=== PATIENT | male | born 1965 | race African-American/Black ===

== ENCOUNTER → 2017-11-17 15:00 | Outpatient (REF) | payer MEDICARE, MEDICAID, SELFPAY ==
[2017-11-17 17:38] LABS: Microscopic, Urine URINE MICROSCOPIC (MICROSCOPIC)
[2017-11-17 17:57] LABS: Basophils % 0.6 % (0.1-2.0); Eosinophils # 0.1 K/mm3 (0.0-0.4); Hematocrit 48.3 % (42.0-52.0); Hemoglobin 15.5 g/dL (14.1-18.0); Lymphocytes # 1.3 K/mm3 (0.7-4.5); Lymphocytes % 22.6 K/mm3 (10-50); Mean Corpuscular HGB Conc 32.1 g/dL (31.8-35.4); Mean Corpuscular Volume 90.4 fl (80-94); Mean Platelet Volume 8.7 fl (7.4-10.4); Monocytes # 0.3 K/mm3 (0.1-1.0); Monocytes % 5.6 % (1.7-9.3); Neutrophils % 69.2 % (37.0-80.0); Platelet Count 254 K/mm3 (142-424); Red Blood Count 5.35 M/mm3 (4.60-6.20); Red Cell Distribution Width 12.5 % (11.5-17.5); White Blood Count 5.7 K/mm3 (4.8-10.8)
[2017-11-17 19:11] LABS: Alanine Aminotransferase 33 U/L (12-78); Albumin Level 4.4 gm/dL (3.4-5.0); Alkaline Phosphatase 116 U/L (46-116); Anion Gap 14.6 mEq/L (5-15); Aspartate Amino Transferase 28 U/L (15-37); Bilirubin,Total 1.4 mg/dL (0.2-1.0); Blood Urea Nitrogen 19 mg/dL (7-18); Calcium 9.2 mg/dL (8.5-10.1); Carbon Dioxide 30 mmol/L (21.0-32.0); Chloride 102 mmol/L (98-107); Chol/HDL Ratio 3.1 (1-3.5); Cholesterol 195 mg/dL (140-200); Estimated Glomerular Filt Rate 32 ml/min (>60); GFR (African American) 38 ML/MIN (>60); Globulin 4.2 gm/dl (1.3-3.2); Glucose 103 mg/dL (74-106); HDL Cholesterol 62 mg/dL (27-67); LDL Cholesterol 122 mg/dL (0-130); Potassium 3.6 mmoL/L (3.5-5.1); Sodium 143 mmol/L (136-145); T4 (Thyroxine) 7.3 ug/dl (4.7-13.3); Thyroid Stimulating Hormone 1.17 uIU/ml (0.358-3.740); Total Protein,Serum 8.6 gm/dL (6.4-8.2); Triglycerides 53 mg/dL (30-200); VLDL Cholesterol 11 mg/dL (0-40)
[2017-11-17 19:21] LABS: Appearance,Urine CLEAR (Clear); Bilirubin,Urine Negative (Negative); Blood, Urine Negative (Negative); Color,Urine YELLOW (Yellow); Glucose,Urine (UA) Negative (Negative); Ketones,Urine Negative (Negative); Leukocyte Esterase,Urine Negative (Negative); Nitrate,Urine Negative (Negative); Protein,Urine 1+ (Negative); Specific Gravity, Urine 1.025 (1.005-1.030); Urobilinogen,Urine 0.2 EU/dl (0.2)
[2017-11-17 20:38] LABS: Bacteria,Urine 1+ /lpf; Squamous Epithelial Cell,Urine 20-50 #/hpf (0-5)
[2017-11-17 21:27] LABS: Hemoglobin A1C 6.3 % (0.0-7.0)
[2017-11-20 20:00] LABS: Vitamin D 25 Hydroxy 15.8 ng/mL (30.0-100.0)
[2017-11-20 20:01] LABS: Folate 16.1 ng/mL (>3.0); PSA, Free 0.51 ng/mL; Vitamin B12 615 pg/mL (232-1245)
== END ==
LOC: LAB 15:00
PROVIDERS: Visit Provider Physician Assistant
DX: E11.9 Type 2 diabetes mellitus without complications (principal); R68.89 Other general symptoms and signs; R35.1 Nocturia; I10 Essential (primary) hypertension; E78.5 Hyperlipidemia, unspecified
CPT/HCPCS: 80053; 80061; 81001; 82043; 82607; 82652; 82746; 83036; 84153; 84154; 84436; 84443; 85025; 87086

== ENCOUNTER → 2018-12-24 17:55 | Outpatient (CLI) | payer MEDICARE, MEDICAID, SELFPAY | PROVIDERS: Visit Provider Nurse Practitioner Family | DX: R68.89 Other general symptoms and signs (principal); R30.0 Dysuria | CPT/HCPCS: 87077; 87086; 87088 ==

== ENCOUNTER → 2019-03-15 17:35 | Outpatient (CLI) | payer MEDICARE, MEDICAID, SELFPAY ==
[2019-03-15 18:39] LABS: Basophils % 0.8 % (0.1-2.0); Eosinophils # 0.2 K/mm3 (0.0-0.4); Eosinophils % 3.7 % (0.1-12.0); Hemoglobin 13.4 g/dL (14.1-18.0); Lymphocytes # 1.2 K/mm3 (0.7-4.5); Mean Corpuscular HGB Conc 31.1 g/dL (31.8-35.4); Mean Corpuscular Hemoglobin 29.7 pg (27.0-31.2); Mean Corpuscular Volume 95.4 fl (80-94); Mean Platelet Volume 9.6 fl (7.4-10.4); Monocytes # 0.4 K/mm3 (0.1-1.0); Monocytes % 9.6 % (1.7-9.3); Neutrophils # 2.4 K/mm3 (1.8-7.8); Neutrophils % 57.9 % (37.0-80.0); Platelet Count 214 K/mm3 (142-424); Red Blood Count 4.51 M/mm3 (4.60-6.20); Red Cell Distribution Width 14.2 % (11.5-17.5); White Blood Count 4.2 K/mm3 (4.8-10.8)
[2019-03-15 20:07] LABS: Alanine Aminotransferase 30 U/L (12-78); Albumin/Globulin Ratio 1.1 (1.1-1.8); Alkaline Phosphatase 82 U/L (46-116); Anion Gap 11.8 mEq/L (5-15); Aspartate Amino Transferase 24 U/L (15-37); Bilirubin,Total 1.1 mg/dL (0.2-1.0); Blood Urea Nitrogen 39 mg/dL (7-18); Carbon Dioxide 31 mmol/L (21.0-32.0); Chloride 103 mmol/L (98-107); Chol/HDL Ratio 2.9 (1-3.5); Cholesterol 196 mg/dL (140-200); Creatinine,Serum 3.04 mg/dL (0.70-1.30); Estimated Glomerular Filt Rate 22 ml/min (>60); GFR (African American) 26 ML/MIN (>60); Globulin 3.8 gm/dl (1.3-3.2); Glucose 100 mg/dL (74-106); HDL Cholesterol 68 mg/dL (27-67); LDL Cholesterol 114 mg/dL (0-130); Potassium 3.8 mmoL/L (3.5-5.1); Sodium 142 mmol/L (136-145); T4 (Thyroxine) 8.5 ug/dl (4.7-13.3); Thyroid Stimulating Hormone 0.92 uIU/ml (0.358-3.740); Total Protein,Serum 7.8 gm/dL (6.4-8.2); Triglycerides 72 mg/dL (30-200); VLDL Cholesterol 14 mg/dL (0-40)
[2019-03-15 20:24] LABS: Hemoglobin A1C 6.3 % (0.0-7.0)
[2019-03-17 11:19] LABS: Creatinine, Urine 310.4 mg/dL (Not Estab.)
[2019-03-17 17:10] LABS: Vitamin D 25 Hydroxy 41.5 ng/mL (30.0-100.0)
== END ==
PROVIDERS: Visit Provider Nurse Practitioner Family
DX: E11.9 Type 2 diabetes mellitus without complications (principal); F39 Unspecified mood [affective] disorder; R79.89 Other specified abnormal findings of blood chemistry; Z79.4 Long term (current) use of insulin
CPT/HCPCS: 80053; 80061; 82043; 82570; 82652; 83036; 84436; 84443; 85025

== ENCOUNTER → 2019-07-21 14:18 | Outpatient (CLI) | payer MEDICARE, MEDICAID, SELFPAY ==
[2019-07-22 13:23] LABS: Basophils % 0.4 % (0.1-2.0); Eosinophils # 0.2 K/mm3 (0.0-0.4); Eosinophils % 3.3 % (0.1-12.0); Hematocrit 42.3 % (42.0-52.0); Hemoglobin 12.7 g/dL (14.1-18.0); Lymphocytes # 1.1 K/mm3 (0.7-4.5); Lymphocytes % 16.6 % (10-50); Mean Corpuscular Hemoglobin 29.6 pg (27.0-31.2); Mean Corpuscular Volume 98.7 fl (80-94); Mean Platelet Volume 10.3 fl (7.4-10.4); Monocytes # 0.4 K/mm3 (0.1-1.0); Monocytes % 5.9 % (1.7-9.3); Neutrophils # 4.7 K/mm3 (1.8-7.8); Neutrophils % 73.8 % (37.0-80.0); Platelet Count 219 K/mm3 (142-424); Red Blood Count 4.29 M/mm3 (4.60-6.20); Red Cell Distribution Width 13.6 % (11.5-17.5); White Blood Count 6.4 K/mm3 (4.8-10.8)
[2019-07-22 13:46] LABS: Hemoglobin A1C 6.4 % (4.0-6.0)
[2019-07-22 14:43] LABS: Chloride 101 mmol/L (98-107); Sodium 142 mmol/L (136-145)
[2019-07-22 14:44] LABS: Potassium 3.5 mmoL/L (3.5-5.1)
[2019-07-22 14:46] LABS: Alanine Aminotransferase 27 U/L (12-78); Albumin/Globulin Ratio 1.2 (1.1-1.8); Alkaline Phosphatase 81 U/L (38-126); Anion Gap 15.5 mEq/L (5-15); Aspartate Amino Transferase 38 U/L (17-59); Bilirubin,Total 0.8 mg/dl (0.2-1.3); Blood Urea Nitrogen 33 mg/dl (9-20); Calcium 9.3 mg/dl (8.4-10.2); Carbon Dioxide 29 mmol/L (22.0-30.0); Cholesterol 144 mg/dl (140-200); Estimated Glomerular Filt Rate 25 ml/min (>60); GFR (African American) 30 ML/MIN (>60); Globulin 3.3 g/dL (1.3-3.2); Glucose 82 mg/dl (74-100); Total Protein,Serum 7.3 g/dl (6.3-8.2); Triglycerides 50 mg/dl (30-150); VLDL Cholesterol 10 mg/dL (0-40)
[2019-07-22 14:47] LABS: Chol/HDL Ratio 2.8 (1-3.5); HDL Cholesterol 51 mg/dl (40-60)
[2019-07-22 14:58] LABS: Direct LDL Cholesterol 82.52 mg/dL (100-129)
[2019-07-22 15:17] LABS: Thyroid Stimulating Hormone 1.21 uIU/mL (0.465-4.68)
[2019-07-23 08:45] LABS: Vitamin D 25 Hydroxy 47.7 ng/mL (30.0-100.0)
== END ==
PROVIDERS: Visit Provider Physician Assistant
DX: E11.9 Type 2 diabetes mellitus without complications (principal); E55.9 Vitamin D deficiency, unspecified; Z79.4 Long term (current) use of insulin
CPT/HCPCS: 80053; 80061; 82652; 83036; 84436; 84443; 85025

== ENCOUNTER → 2019-07-21 14:50 | Outpatient (CLI) | payer MEDICARE, MEDICAID, SELFPAY ==
--- NOTE | 2019-07-21 14:53 | CA_ITS ---
APPROVED REPORT Right Lower Extremity Venous Study for DVT. Police Or Patrol Park Officer: BRYSON StoreyT Indications Lower Extremity Pain: Right Lower Extremity Edema: Right Pain and swelling RLE,DM Vein Imaging CFV (R): compressive, spontaneous, phasic, augmentation FEM (R): compressive, spontaneous, phasic, augmentation POP (R): compressive, spontaneous, phasic, augmentation PTV (R): Compressible GSV (R): Compressible Peroneals (R):Compressible GAS (R): Compressible Findings Study suggests no evidence of DVT in the right lower extremity. Study suggests no evidence of SVT in the right lower extremity. Conclusion Study suggests no evidence of DVT in the right lower extremity. Study suggests no evidence of SVT in the right lower extremity. Critical Notification Physician Notified Date: 07/21/2019 Time: 15:40 Physician Name: Kiran's office Electronically signed by : Alexx Cunningham, 07/21/2019 18:41:07
--- NOTE | 2019-07-21 14:53 | US_ITS ---
APPROVED REPORT Exam Type: Lower Extremity Segmental Pressures Quality Auditor: Yani Carrington RVT Indications Limb Pain: Right Rest Pain: Bilaterally Trauma Pt has wound dorsal right foot x several days Risk Factors Hypertension Diabetes Pressures/Indices Right Indices Left Indices Brachial 196.00 mmHg Brachial 179.00 mmHg Low Thigh 188.00 mmHg 0.96 Low Thigh 217.00 mmHg 1.11 Calf 239.00 mmHg 1.22 Calf 242.00 mmHg 1.23 Ankle(PT) 239.00 mmHg 1.22 Ankle(PT) 238.00 mmHg 1.21 Ankle(DP) 251.00 mmHg 1.28 Ankle(DP) 233.00 mmHg 1.19 Digit 249.00 mmHg 1.27 Digit 246.00 mmHg 1.26 Findings RT ELEAZAR:1.22 LT ELEAZAR:1.21 RT TBI:1.27 LT TBI:1.26 NORMAL WAVEFORMS BRISA. NORMAL PULSE BRISA. Conclusion RT ELEAZAR:1.22 LT ELEAZAR:1.21 RT TBI:1.27 LT TBI:1.26 NORMAL WAVEFORMS BRISA. NORMAL PULSE BRISA. Electronically signed by : Alexx Cunningham, 07/21/2019 18:39:44
== END ==
PROVIDERS: PCP Physician Assistant; Visit Provider Physician Assistant
DX: M79.604 Pain in right leg (principal); M79.89 Other specified soft tissue disorders; R09.89 Other specified symptoms and signs involving the circulatory and respiratory systems; S99.921A Unspecified injury of right foot, initial encounter; E11.9 Type 2 diabetes mellitus without complications; Z79.4 Long term (current) use of insulin; Z79.899 Other long term (current) drug therapy
CPT/HCPCS: 80053; 80061; 82652; 83036; 84436; 84443; 85025; 93923; 93971

== ENCOUNTER → 2019-08-31 14:45 | Outpatient (CLI) | payer MEDICARE, MEDICAID, SELFPAY ==
[2019-08-31 14:53] LABS: Microscopic, Urine URINE MICROSCOPIC (MICROSCOPIC)
[2019-08-31 15:27] LABS: Basophils % 0.9 % (0.1-2.0); Eosinophils # 0.2 K/mm3 (0.0-0.4); Eosinophils % 3.9 % (0.1-12.0); Hematocrit 42.6 % (42.0-52.0); Hemoglobin 13.5 g/dL (14.1-18.0); Lymphocytes # 0.8 K/mm3 (0.7-4.5); Lymphocytes % 19.7 % (10-50); Mean Corpuscular HGB Conc 31.7 g/dL (31.8-35.4); Mean Corpuscular Hemoglobin 30.3 pg (27.0-31.2); Mean Corpuscular Volume 95.6 fl (80-94); Mean Platelet Volume 8.6 fl (7.4-10.4); Monocytes # 0.2 K/mm3 (0.1-1.0); Monocytes % 5.7 % (1.7-9.3); Neutrophils # 2.9 K/mm3 (1.8-7.8); Neutrophils % 69.8 % (37.0-80.0); Platelet Count 203 K/mm3 (142-424); Red Blood Count 4.46 M/mm3 (4.60-6.20); Red Cell Distribution Width 12.6 % (11.5-17.5); White Blood Count 4.2 K/mm3 (4.8-10.8)
[2019-08-31 15:53] LABS: Creatinine,Urine Random 219 mg/dL (Not Estab.)
[2019-08-31 15:54] LABS: Appearance,Urine CLEAR (Clear); Bilirubin,Urine Negative (Negative); Blood, Urine Negative (Negative); Color,Urine YELLOW (Yellow); Glucose,Urine (UA) Negative (Negative); Ketones,Urine Negative (Negative); Leukocyte Esterase,Urine Negative (Negative); Nitrate,Urine Negative (Negative); PH,Urine 6.5 (5.0-8.5); Protein,Urine TRACE (Negative); Urobilinogen,Urine 0.2 EU/dl (0.2)
[2019-08-31 16:23] LABS: Albumin Level 4.2 g/dl (3.5-5.0); Anion Gap 9.9 mEq/L (5-15); Blood Urea Nitrogen 26 mg/dl (9-20); Calcium 9.2 mg/dl (8.4-10.2); Carbon Dioxide 32 mmol/L (22.0-30.0); Chloride 102 mmol/L (98-107); Estimated Glomerular Filt Rate 27 ml/min (>60); GFR (African American) 33 ML/MIN (>60); Glucose 143 mg/dl (74-100); Phosphorous 3.4 mg/dl (2.5-4.5); Potassium 3.9 mmoL/L (3.5-5.1); Sodium 140 mmol/L (136-145)
[2019-08-31 16:54] LABS: Bacteria,Urine Trace /lpf; RBC,Urine Occasional #/hpf (0-3); Squamous Epithelial Cell,Urine Occasional #/hpf (0-5)
[2019-09-02 11:31] LABS: Parathyroid Hormone Intact 37 pg/mL (15-65); Vitamin D 25 Hydroxy 41.3 ng/mL (30.0-100.0)
== END ==
PROVIDERS: Visit Provider Internal Medicine Nephrology
DX: N18.3 Chronic kidney disease, stage 3 (moderate) (principal)
CPT/HCPCS: 36415; 80069; 81001; 82570; 82652; 83970; 84155; 85025

== ENCOUNTER → 2020-08-21 14:21 | Outpatient (CLI) | payer MEDICARE, MEDICAID, SELFPAY ==
[2020-08-21 14:46] LABS: Hemoglobin A1C 6.4 % (4.0-6.0)
[2020-08-21 14:47] LABS: Basophils # 0.1 K/mm3 (0-0.2); Eosinophils # 0.2 K/mm3 (0.0-0.4); Eosinophils % 3.4 % (0.1-12.0); Hematocrit 45.1 % (42.0-52.0); Hemoglobin 14.7 g/dL (14.1-18.0); Lymphocytes # 0.9 K/mm3 (0.7-4.5); Lymphocytes % 17.7 % (10-50); Mean Corpuscular HGB Conc 32.6 g/dL (31.8-35.4); Mean Corpuscular Hemoglobin 30.8 pg (27.0-31.2); Mean Corpuscular Volume 94.6 fl (80-94); Mean Platelet Volume 9.4 fl (7.4-10.4); Monocytes # 0.3 K/mm3 (0.1-1.0); Monocytes % 5.4 % (1.7-9.3); Neutrophils # 3.6 K/mm3 (1.8-7.8); Neutrophils % 72.5 % (37.0-80.0); Platelet Count 210 K/mm3 (142-424); Red Blood Count 4.77 M/mm3 (4.60-6.20); Red Cell Distribution Width 13.2 % (11.5-17.5)
[2020-08-21 14:50] LABS: Alanine Aminotransferase 28 U/L (12-78); Albumin Level 4.6 g/dl (3.5-5.0); Albumin/Globulin Ratio 1.3 (1.1-1.8); Alkaline Phosphatase 100 U/L (38-126); Anion Gap 11.7 mEq/L (5-15); Aspartate Amino Transferase 33 U/L (17-59); Bilirubin,Total 1.1 mg/dl (0.2-1.3); Blood Urea Nitrogen 20 mg/dl (9-20); Calcium 9.6 mg/dl (8.4-10.2); Carbon Dioxide 34 mmol/L (22.0-30.0); Chloride 101 mmol/L (98-107); Chol/HDL Ratio 3.1 (1-3.5); Cholesterol 188 mg/dl (140-200); Estimated Glomerular Filt Rate 24 ml/min (>60); GFR (African American) 29 ML/MIN (>60); Globulin 3.5 g/dL (1.3-3.2); Glucose 117 mg/dl (74-100); HDL Cholesterol 61 mg/dl (40-60); Potassium 3.7 mmoL/L (3.5-5.1); Sodium 143 mmol/L (136-145); Total Protein,Serum 8.1 g/dl (6.3-8.2); Triglycerides 60 mg/dl (30-150); VLDL Cholesterol 12 mg/dL (0-40)
[2020-08-21 15:01] LABS: Direct LDL Cholesterol 98.63 mg/dL (100-129)
[2020-08-21 15:02] LABS: Free T4 (Free Thyroxine) 1.19 ng/dl (0.78-2.19)
[2020-08-21 15:07] LABS: 25-OH Vitamin D, Total 37.8 ng/mL (30-100)
[2020-08-21 15:21] LABS: Prostate Specific Ag Screen 1.2 ng/ml (0.0-4.0); Thyroid Stimulating Hormone 1.91 uIU/mL (0.465-4.68)
== END ==
PROVIDERS: Visit Provider Physician Assistant
DX: E11.9 Type 2 diabetes mellitus without complications (principal); E55.9 Vitamin D deficiency, unspecified; E78.5 Hyperlipidemia, unspecified; I25.10 Atherosclerotic heart disease of native coronary artery without angina pectoris; Z12.5 Encounter for screening for malignant neoplasm of prostate; F39 Unspecified mood [affective] disorder; R79.89 Other specified abnormal findings of blood chemistry; L97.519 Non-pressure chronic ulcer of other part of right foot with unspecified severity; Z79.4 Long term (current) use of insulin
CPT/HCPCS: 80053; 80061; 82043; 82306; 83036; 84439; 84443; 85025; G0103

== ENCOUNTER → 2020-12-31 12:29 | Outpatient (CLI) | payer MEDICARE, MEDICAID, SELFPAY ==
[2020-12-31 13:07] LABS: Basophils % 0.6 % (0.1-2.0); Eosinophils # 0.5 K/mm3 (0.0-0.4); Eosinophils % 8.8 % (0.1-12.0); Hematocrit 38.9 % (42.0-52.0); Hemoglobin 12.8 g/dL (14.1-18.0); Lymphocytes # 1.1 K/mm3 (0.7-4.5); Lymphocytes % 19.9 % (10-50); Mean Corpuscular Hemoglobin 30.4 pg (27.0-31.2); Mean Corpuscular Volume 92.1 fl (80-94); Mean Platelet Volume 8.9 fl (7.4-10.4); Monocytes # 0.4 K/mm3 (0.1-1.0); Monocytes % 7.7 % (1.7-9.3); Neutrophils # 3.5 K/mm3 (1.8-7.8); Neutrophils % 63.1 % (37.0-80.0); Platelet Count 189 K/mm3 (142-424); Red Blood Count 4.22 M/mm3 (4.60-6.20); Red Cell Distribution Width 13.5 % (11.5-17.5); White Blood Count 5.6 K/mm3 (4.8-10.8)
[2020-12-31 13:16] LABS: Albumin Level 3.7 g/dl (3.5-5.0); Anion Gap 10.3 mEq/L (5-15); Blood Urea Nitrogen 26 mg/dl (9-20); Calcium 8.4 mg/dl (8.4-10.2); Carbon Dioxide 35 mmol/L (22.0-30.0); Chloride 102 mmol/L (98-107); Estimated Glomerular Filt Rate 23 ml/min (>60); GFR (African American) 27 ML/MIN (>60); Glucose 122 mg/dl (74-100); Phosphorous 3.9 mg/dl (2.5-4.5); Potassium 4.3 mmoL/L (3.5-5.1); Sodium 143 mmol/L (136-145)
[2020-12-31 13:29] LABS: Intact Parathyroid Hormone 87.9 pg/mL (7.5-53.5)
[2020-12-31 13:33] LABS: 25-OH Vitamin D, Total 48.5 ng/mL (30-100)
[2020-12-31 13:36] LABS: Creatinine,Urine Random 250 mg/dL (Not Estab.)
[2020-12-31 18:51] LABS: Microscopic, Urine URINE MICROSCOPIC (MICROSCOPIC)
[2020-12-31 20:00] LABS: Appearance,Urine CLEAR (Clear); Bilirubin,Urine Negative (Negative); Blood, Urine TRACE-I (Negative); Color,Urine YELLOW (Yellow); Glucose,Urine (UA) Negative (Negative); Ketones,Urine Negative (Negative); Leukocyte Esterase,Urine Negative (Negative); Nitrate,Urine Negative (Negative); PH,Urine 5.5 (5.0-8.5); Protein,Urine TRACE (Negative); Specific Gravity, Urine 1.025 (1.005-1.030); Urobilinogen,Urine 0.2 EU/dl (0.2)
[2020-12-31 20:13] LABS: Bacteria,Urine Trace /lpf; RBC,Urine Occasional #/hpf (0-3)
== END ==
PROVIDERS: Visit Provider Internal Medicine Nephrology
DX: R80.9 Proteinuria, unspecified (principal); E55.9 Vitamin D deficiency, unspecified
CPT/HCPCS: 36415; 80069; 81001; 82306; 82570; 83970; 84155; 85025

== ENCOUNTER → 2021-01-03 13:36 | Outpatient (POV) | payer MEDICARE, MEDICAID, SELFPAY | PROVIDERS: Visit Provider Internal Medicine Nephrology | DX: Z00.00 Encounter for general adult medical examination without abnormal findings (principal) ==

== ENCOUNTER 2021-06-20 15:08 | Observation (INO) | payer MEDICARE, MEDICAID, SELFPAY ==
[2021-06-20 15:10] VITALS: BP 127/82; PULSE 84; RESP 16; TEMP 36.8; O2SAT 98; BMI 28.1
[2021-06-20 16:59] VITALS: BP 117/68; PULSE 63; RESP 20; TEMP 36.8; O2SAT 96
--- NOTE | 2021-06-20 17:00 | CT_ITS ---
PROCEDURE INFORMATION: Exam: CT Abdomen And Pelvis Without Contrast Exam date and time: 06/20/2021 5:00 PM Age: 56 years old Clinical indication: Other: Bleeding rectum; Additional info: Abd pain with bleeding rectum TECHNIQUE: Imaging protocol: Computed tomography of the abdomen and pelvis without contrast. Radiation optimization: All CT scans at this facility use at least one of these dose optimization techniques: automated exposure control; mA and/or kV adjustment per patient size (includes targeted exams where dose is matched to clinical indication); or iterative reconstruction. COMPARISON: ABDPELW/O CT ABD PELVIS W/O CONTRAST 11/01/2015 2:37 PM FINDINGS: Lungs: Left basilar subpleural 6 mm pulmonary nodule, unchanged from 2016 having greater than 2 years of stability. No follow-up recommended. Liver: Normal. No mass. Gallbladder and bile ducts: Normal. No calcified stones. No ductal dilation. Pancreas: Normal. No ductal dilation. Spleen: Normal. No splenomegaly. Adrenal glands: Normal. No mass. Kidneys and ureters: Bilateral Bosniak 1 cysts largest at the inferior pole of the right kidney measuring 13 mm in diameter. No follow-up recommended. Stomach and bowel: There are multiple diverticula throughout the sigmoid colon, with subjacent inflammatory changes compatible with diverticulitis. Appendix: No evidence of appendicitis. Intraperitoneal space: Unremarkable. No free air. No significant fluid collection. Vasculature: Mild calcific atherosclerotic disease is scattered throughout the abdominal aorta without aneurysmal dilatation. Lymph nodes: Unremarkable. No enlarged lymph nodes. Urinary bladder: Unremarkable as visualized. Reproductive: Unremarkable as visualized. Bones/joints: Moderate discogenic degenerative changes from L3 through S1. No acute fracture. Soft tissues: Normal. IMPRESSION: Acute diverticulitis as described above without evidence of colonic perforation or abscess. COMMENTS: Consistent with the [employer]'s Incidental Findings Committee white paper (J Am John Radiol 2018): Any incidental renal lesion less than 1 cm or classified as too small to characterize, or any incidental cystic renal lesion characterized as simple-appearing, is likely benign. No follow-up imaging is recommended for these lesions per consensus recommendations based on imaging criteria.
--- NOTE | 2021-06-20 17:18 | PC.NURSE ---
pT HAS REMOVED HIS VS MONITORS AND IS UP WALKING AROUND THE ROOM. pT GIVEN A BLANKET UPON REQUEST.
--- NOTE | 2021-06-20 17:22 | HMH.EDGENADL ---
ED Disposition Clinical Impression: Rectal bleeding, Diverticulitis, Acute kidney injury, Hypokalemia Chronic kidney disease Qualifiers: Chronic kidney disease stage: unspecified stage Qualified Code(s): N18.9 - Chronic kidney disease, unspecified Disposition: Admitted as Observation Condition on Discharge: Fair Referrals: Ilda Yates PA [Primary Care Provider] - - Critical Care Critical Care Time: No Attestation: On 06/20/21, the high probability of a clinically significant, sudden or life threatening deterioration of the following system(s) required my full and direct attention, intervention and personal management. The time I documented below is in addition to time spent performing reported procedures but includes the following listed in this critical care notation. Medical Decision Making - Jj Inquiry Pt receiving controlled substance: No Vital Signs: 06/20/21 15:10 Temperature 98.2 F Temperature Source Oral Pulse Rate [Right] 84 Respiratory Rate 16 Blood Pressure [Right Arm] 127/82 Blood Pressure Mean [Right Arm] 97 Blood Pressure Source [Right Arm] Automatic Cuff Blood Pressure Position [Right Arm] Sitting 02 Sat by Pulse Oximetry 98 Oxygen Delivery Method Room Air - Lab Data Lab Results 06/20/21 16:40: WBC 8.8, RBC 4.12 L, Hgb 12.7 L, Hct 40.5 L, MCV 98.3 H, MCH 30.9, MCHC 31.5 L, RDW 13.3, Plt Count 287, MPV 8.5, Neut % (Auto) 75.6, Lymph % (Auto) 16.6, [place] % (Auto) 5.1, Eos % (Auto) 1.6, Baso % (Auto) 1.2, Neut # (Auto) 6.7, Lymph # (Auto) 1.5, [place] # (Auto) 0.5, Eos # (Auto) 0.1, Baso # (Auto) 0.1 06/20/21 16:40: Sodium 141, Potassium 2.9 L*, Chloride 98, Carbon Dioxide 38 H, Anion Gap 7.9, BUN 29 H, Creatinine 3.80 H, Estimated Creat Clear 26, Estimated GFR 17 L*, Est GFR ( Amer) 20 L, Glucose 107 H, Calcium 9.2, Total Bilirubin 0.7, AST 35, ALT 20, Alkaline Phosphatase 73, Total Protein 8.0, Albumin 4.2, Globulin 3.8 H, Albumin/Globulin Ratio 1.1, Amylase 108, Lipase 176 Result diagrams: 06/20/21 16:40 06/20/21 16:40 Orders (Tests/Meds): ED MEDICATIONS Generic Name Dose Route Start Last Admin Trade Name Freq PRN Reason Stop Dose Admin Levofloxacin/Dextrose 750 mg in 150 mls @ 100 mls/hr 06/20/21 19:30 Levofloxacin 750mg/150ml Premix IV 07/04/21 19:29 Q48H LETITIA Metronidazole 500 mg in 100 mls @ 100 mls/hr 06/20/21 19:30 Flagyl 500mg/100ml Ivpb IV 07/04/21 19:29 Q8H LETITIA Sodium Chloride 1,000 mls @ 100 mls/hr 06/20/21 19:30 Sod Chlor 0.9% 1000ml Bag IV 07/20/21 19:29 .Q10H LETITIA Potassium Chloride 20 meq 06/20/21 21:00 Potassium Chloride 20meq Tab PO 07/20/21 20:59 BID LETITIA ORDERS Category Date Time Status Occult Blood,Stool Stat Lab 06/20/21 17:00 Ordered Rapid PCR Covid and Flu A/B Stat Lab 06/20/21 19:16 Received - CT Data CT Scan: Abdomen, Pelvis Time Received: 18:[address] Reviewed: Yes: I have viewed the radiologist's interpretation Findings Narrative: Procedure(s): CT abdomen pelvis wo con Accession Number(s): [id number] cc: Kin Garcia MD; Yuniel Tadeo MD; Ilda Yates~ PROCEDURE INFORMATION: Exam: CT Abdomen And Pelvis Without Contrast Exam date and time: 06/20/2021 5:00 PM Age: 56 years old Clinical indication: Other: Bleeding rectum; Additional info: Abd pain with bleeding rectum TECHNIQUE: Imaging protocol: Computed tomography of the abdomen and pelvis without contrast. Radiation optimization: All CT scans at this facility use at least one of these dose optimization techniques: automated exposure control; mA and/or kV adjustment per patient size (includes targeted exams where dose is matched to clinical indication); or iterative reconstruction. COMPARISON: ABDPELW/O CT ABD PELVIS W/O CONTRAST 11/01/2015 2:37 PM FINDINGS: Lungs: Left basilar subpleural 6 mm pulmonary nodule, unchanged from 2016 having greater than 2 years of stability. N
[2021-06-20 17:23] LABS: Basophils # 0.1 K/mm3 (0-0.2); Basophils % 1.2 % (0.1-2.0); Eosinophils # 0.1 K/mm3 (0.0-0.4); Eosinophils % 1.6 % (0.1-12.0); Hematocrit 40.5 % (42.0-52.0); Hemoglobin 12.7 g/dL (14.1-18.0); Lymphocytes # 1.5 K/mm3 (0.7-4.5); Lymphocytes % 16.6 % (10-50); Mean Corpuscular HGB Conc 31.5 g/dL (31.8-35.4); Mean Corpuscular Hemoglobin 30.9 pg (27.0-31.2); Mean Corpuscular Volume 98.3 fl (80-94); Mean Platelet Volume 8.5 fl (7.4-10.4); Monocytes # 0.5 K/mm3 (0.1-1.0); Monocytes % 5.1 % (1.7-9.3); Neutrophils # 6.7 K/mm3 (1.8-7.8); Neutrophils % 75.6 % (37.0-80.0); Platelet Count 287 K/mm3 (142-424); Red Blood Count 4.12 M/mm3 (4.60-6.20); Red Cell Distribution Width 13.3 % (11.5-17.5); White Blood Count 8.8 K/mm3 (4.8-10.8)
[2021-06-20 17:53] LABS: Chloride 98 mmol/L (98-107); Sodium 141 mmol/L (136-145)
[2021-06-20 17:56] LABS: Alanine Aminotransferase 20 U/L (12-78); Alkaline Phosphatase 73 U/L (38-126); Amylase 108 U/L (30-110); Anion Gap 7.9 mEq/L (5-15); Aspartate Amino Transferase 35 U/L (17-59); Bilirubin,Total 0.7 mg/dl (0.2-1.3); Blood Urea Nitrogen 29 mg/dl (9-20); Calcium 9.2 mg/dl (8.4-10.2); Carbon Dioxide 38 mmol/L (22.0-30.0); Creatinine Clearance Estimated 26 mL/min (50-200); Estimated Glomerular Filt Rate 17 ml/min (>60); GFR (African American) 20 ML/MIN (>60); Glucose 107 mg/dl (74-100); Lipase 176 U/L (23-300)
[2021-06-20 17:57] LABS: Albumin Level 4.2 g/dl (3.5-5.0); Albumin/Globulin Ratio 1.1 (1.1-1.8); Globulin 3.8 g/dL (1.3-3.2)
[2021-06-20 18:02] LABS: Potassium 2.9 mmoL/L (3.5-5.1)
--- NOTE | 2021-06-20 18:48 | PC.NURSE ---
CALLING DR WESTBROOK
--- NOTE | 2021-06-20 18:57 | PC.NURSE ---
PT UP TO RESTROOM
[2021-06-20 19:22] LABS: Coronavirus 19, PCR Not Detected (NotDetected); Influenza A, PCR Not Detected (NotDetected); Influenza B, PCR Not Detected (NotDetected)
[2021-06-20 21:07] VITALS: BP 117/68; PULSE 65; RESP 20; TEMP 36.8; O2SAT 98
--- NOTE | 2021-06-20 21:42 | PC.NURSE ---
PT ARRIVED TO FLOOR VIA W/C FROM ED W/STAFF @ 1835
[2021-06-20 21:52] VITALS: BP 149/97; PULSE 54; RESP 18; TEMP 36.8; O2SAT 98; BMI 28.1
[2021-06-20 23:00] VITALS: O2SAT 98
[2021-06-21 02:13] LABS: POC Glucose,Bedside 93 (70-110)
[2021-06-21 04:00] VITALS: BP 155/98; PULSE 64; RESP 18; TEMP 36.9; O2SAT 100
[2021-06-21 07:14] LABS: Basophils # 0.1 K/mm3 (0-0.2); Basophils % 0.8 % (0.1-2.0); Eosinophils # 0.2 K/mm3 (0.0-0.4); Eosinophils % 3.2 % (0.1-12.0); Hematocrit 35.7 % (42.0-52.0); Lymphocytes # 1.5 K/mm3 (0.7-4.5); Lymphocytes % 23.4 % (10-50); Mean Corpuscular HGB Conc 31.9 g/dL (31.8-35.4); Mean Corpuscular Hemoglobin 31.2 pg (27.0-31.2); Mean Corpuscular Volume 97.8 fl (80-94); Mean Platelet Volume 8.7 fl (7.4-10.4); Monocytes # 0.4 K/mm3 (0.1-1.0); Monocytes % 6.6 % (1.7-9.3); Neutrophils # 4.2 K/mm3 (1.8-7.8); Platelet Count 252 K/mm3 (142-424); Red Blood Count 3.66 M/mm3 (4.60-6.20); Red Cell Distribution Width 13.3 % (11.5-17.5); White Blood Count 6.4 K/mm3 (4.8-10.8)
[2021-06-21 07:21] LABS: Blood Urea Nitrogen 31 mg/dl (9-20); Calcium 8.3 mg/dl (8.4-10.2); Carbon Dioxide 36 mmol/L (22.0-30.0); Chloride 97 mmol/L (98-107); Creatinine Clearance Estimated 33 mL/min (50-200); Estimated Glomerular Filt Rate 22 ml/min (>60); GFR (African American) 26 ML/MIN (>60); Glucose 138 mg/dl (74-100); Sodium 136 mmol/L (136-145)
--- NOTE | 2021-06-21 07:25 | P.CONPHA_ITS ---
[facility] Pharmacy VTE Monitoring - Patient Demographics Admission date: 06/20/21 Report Date: 06/21/21 Time: 07:25 Allergies/Adverse Reactions: Patient Allergies No Known Allergies Allergy (Verified 08/31/20 10:02) Height: 1.73 m Weight: 84.17 kg Patient Problems: Current Active Problems (Last Updated 11/22/17 @ 09:08 by SUMI Vee) Rectal bleeding (Acute) Diverticulitis (Acute) Acute kidney injury (Acute) Chronic kidney disease (Acute) Hypokalemia (Acute) - VTE Risk Labs: VTE Related Lab Results Hgb 12.7 g/dL (14.1-18.0) L 06/20/21 16:40 Hct 40.5 % (42.0-52.0) L 06/20/21 16:40 Plt Count 287 K/mm3 (142-424) 06/20/21 16:40 BUN 29 mg/dl (9-20) H 06/20/21 16:40 Creatinine 3.80 mg/dl (0.66-1.25) H 06/20/21 16:40 Estimated Creat Clear 26 mL/min (50-200) 06/20/21 16:40 Was VTE Risk Assessment Performed: Yes VTE Score: 1 VTE Risk Level: Very Low Risk - Prophylaxis VTE Prophylaxis Ordered?: Yes Types of VTE Prophylaxis: TEDS Knee High Location of Applied Device: Bilateral Lower Extremeties
[2021-06-21 07:32] LABS: Hemoglobin 11.4 g/dL (14.1-18.0)
[2021-06-21 07:53] LABS: POC Glucose,Bedside 141 (70-110)
[2021-06-21 08:00] VITALS: BP 155/102; PULSE 62; RESP 15; TEMP 36.9; O2SAT 98
--- NOTE | 2021-06-21 09:44 | HMH.HPDC ---
General - General Admission date:: 06/20/21 Discharge date: 06/21/21 *Admission Date: 06/20/21 *Chief complaint: Bright red blood per rectum *History of present illness: States that he has had rectal bleeding today. He thinks 2-3 times. Describes bright red blood. Denies any abdominal pain today to me, although apparently complained of lower abdominal pain to the nurse. Denies vomiting or hematemesis. Denies fever. States that he has had rectal bleeding 1 time previously last year. He was seen at a hospital but he does not think it was here. He says they did a work-up including a CT scan of his abdomen and he was discharged from the emergency department. He says he did not follow-up with anybody including his primary care provider or any forest products teacher. He denies ever having EGD or colonoscopy. He denies being on any anticoagulants. [facility] History I have reviewed the patient's past medical history: Yes Medical History: Reports:: Diabetes Mellitus Type 1, Diabetes Mellitus Type 2, Hyperlipidemia, Renal Disease *Have you ever received a pneumonia vaccine?: No *Have you received a flu vaccine this season?: No Other Surgeries: Yes: No Previous Surgery Amputation: No Fractures: No - *Social History Last grade of school completed: High school graduate Smoking Status: Never smoker Alcohol Intake: never Substance Use Type: denies use *Occupational Status:: disabled Housing: house Household Members: significant other *Travel in the last 8 weeks: None Family Hx:: No significant family history Review of Systems - Review of Systems Review of systems:: pertinent systems reviewed and negative unless documented below - Constitutional Reports fatigue, Denies fever(s) - Eyes Denies change in vision - ENT Denies dental pain, Denies dizziness - *Cardiovascular Denies chest pain, Denies shortness of breath - *Respiratory Denies chest congestion, Denies shortness of breath - *Gastrointestinal Reports abdominal pain, Reports change in bowel habits, Reports change in stools, Reports loose stools - *Musculoskeletal Denies abnormal walking, Denies back pain - Integumentary/Breasts Denies bleeding lesions, Denies change in skin color - *Neurologic Denies abnormal walking, Denies unsteadiness - Psychiatric Denies abnormal sleep pattern, Denies hearing things others do not hear, Denies confusion - Endocrine Denies cold intolerance, Denies excessive sweating - Hematologic/Lymphatic Denies easy bleeding, Denies easy bruising - Allergic/Immunologic Denies GI upset with certain foods, Denies lip swelling Exam Vital signs and Labs for Last 24 Hours: Temp Pulse Resp BP Pulse Ox 98.4 F 62 15 155/102 H 98 06/21/21 08:00 06/21/21 08:00 06/21/21 08:00 06/21/21 08:00 06/21/21 08:00 Laboratory Results - last 24 hr 06/20/21 16:40: WBC 8.8, RBC 4.12 L, Hgb 12.7 L, Hct 40.5 L, MCV 98.3 H, MCH 30.9, MCHC 31.5 L, RDW 13.3, Plt Count 287, MPV 8.5, Neut % (Auto) 75.6, Lymph % (Auto) 16.6, [place] % (Auto) 5.1, Eos % (Auto) 1.6, Baso % (Auto) 1.2, Neut # (Auto) 6.7, Lymph # (Auto) 1.5, [place] # (Auto) 0.5, Eos # (Auto) 0.1, Baso # (Auto) 0.1 06/20/21 16:40: Sodium 141, Potassium 2.9 L*, Chloride 98, Carbon Dioxide 38 H, Anion Gap 7.9, BUN 29 H, Creatinine 3.80 H, Estimated Creat Clear 26, Estimated GFR 17 L*, Est GFR ( Amer) 20 L, Glucose 107 H, Calcium 9.2, Total Bilirubin 0.7, AST 35, ALT 20, Alkaline Phosphatase 73, Total Protein 8.0, Albumin 4.2, Globulin 3.8 H, Albumin/Globulin Ratio 1.1, Amylase 108, Lipase 176 06/20/21 19:16: SARS-CoV-2 (PCR) Not detected, Influenza A Untype (PCR) Not detected, Influenza Type B (PCR) Not detected 06/20/21 23:36: POC Glucose 93 06/21/21 06:42: WBC 6.4 D, RBC 3.66 L, Hgb 11.4 L D, Hct 35.7 L, MCV 97.8 H, MCH 31.2, MCHC 31.9, RDW 13.3, Plt Count 252, MPV 8.7, Neut % (Auto) 66.0, Lymph % (Auto) 23.4, [place] % (Auto) 6.6, Eos % (Auto) 3.2, Baso % (Auto) 0.8, Neut # (Auto) 4.2,
[2021-06-21 11:50] LABS: POC Glucose,Bedside 151 (70-110)
== END 2021-06-21 14:46 | disposition home or self-care (01) ==
LOC: ER 19:25 → 2ND 21:59
PROVIDERS: Admitting Provider Emergency Medicine; Emergency Provider Emergency Medicine; PCP Physician Assistant; Visit Provider Emergency Medicine
DX: K62.5 Hemorrhage of anus and rectum (principal); K57.92 Diverticulitis of intestine, part unspecified, without perforation or abscess without bleeding; E11.9 Type 2 diabetes mellitus without complications; Z79.4 Long term (current) use of insulin; Z79.01 Long term (current) use of anticoagulants; N17.9 Acute kidney failure, unspecified; E87.6 Hypokalemia; Z79.899 Other long term (current) drug therapy; N18.9 Chronic kidney disease, unspecified; Z20.822 Contact with and (suspected) exposure to COVID-19
CPT/HCPCS: G0378; 36415; 74176; 80048; 80053; 82150; 82962; 83690; 85025; 96365; 99284; C9803; J1956; U0003; U0005

== ENCOUNTER 2023-11-02 09:09 | Outpatient (CLI) | payer MEDICARE, MEDICAID, SELFPAY ==
[2023-11-02 19:03] LABS: Basophils % 0.9 % (0.1-2.0); Eosinophils # 0.1 K/mm3 (0.0-0.4); Hematocrit 41.3 % (42.0-52.0); Hemoglobin 13.8 g/dL (14.1-18.0); Lymphocytes # 1.1 K/mm3 (0.7-4.5); Lymphocytes % 22.1 % (10-50); Mean Corpuscular HGB Conc 33.5 g/dL (31.8-35.4); Mean Corpuscular Hemoglobin 31.5 pg (27.0-31.2); Mean Corpuscular Volume 94.2 fl (80-94); Mean Platelet Volume 9.5 fl (7.4-10.4); Monocytes # 0.3 K/mm3 (0.1-1.0); Monocytes % 5.7 % (1.7-9.3); Neutrophils # 3.4 K/mm3 (1.8-7.8); Neutrophils % 69.3 % (37.0-80.0); Platelet Count 216 K/mm3 (142-424); Red Blood Count 4.39 M/mm3 (4.60-6.20); Red Cell Distribution Width 13.8 % (11.5-17.5); White Blood Count 4.8 K/mm3 (4.8-10.8)
[2023-11-02 19:25] LABS: Alanine Aminotransferase 17 U/L (12-78); Albumin Level 4.3 g/dl (3.5-5.0); Albumin/Globulin Ratio 1.2 (1.1-1.8); Alkaline Phosphatase 80 U/L (38-126); Anion Gap 10.7 mEq/L (5-15); Aspartate Amino Transferase 29 U/L (17-59); Blood Urea Nitrogen 37 mg/dl (9-20); Calcium 9.8 mg/dl (8.4-10.2); Carbon Dioxide 33 mmol/L (22.0-30.0); Chloride 102 mmol/L (98-107); Chol/HDL Ratio 3.4 (1-3.5); Cholesterol 215 mg/dl (140-200); Estimated Glomerular Filt Rate 19 ml/min (>60); GFR (African American) 23 ML/MIN (>60); Globulin 3.5 g/dL (1.3-3.2); Glucose 102 mg/dl (74-100); HDL Cholesterol 63 mg/dl (40-60); Potassium 3.7 mmoL/L (3.5-5.1); Sodium 142 mmol/L (136-145); Total Protein,Serum 7.8 g/dl (6.3-8.2); Triglycerides 61 mg/dl (30-150); VLDL Cholesterol 12 mg/dL (0-40)
[2023-11-02 19:35] LABS: Direct LDL Cholesterol 110.68 mg/dL (100-129)
[2023-11-02 19:57] LABS: Thyroid Stimulating Hormone 0.93 uIU/mL (0.465-4.68)
[2023-11-02 21:46] LABS: Hemoglobin A1C 6.2 % (4.0-6.0)
--- OUTSIDE RECORDS SUMMARY | 2023-11-04 09:12 | XMS_ITS | Clinical Summary ---
Author Name Unknown Address [address] [place] [address] Phone Organization [facility] Address [address] [place] [address] Phone Care Team Providers Care Ice Cream Vendor Name Role Phone Unavailable Unavailable Conditions or Problems No information available. Medications No information available. Medications Administered No information available. Allergies, Adverse Reactions, Alerts No information available. Results No information available. Plan of Care No information available. Procedures No information available. Vital Signs No information available. Immunizations No information available. Advance Directives No information available.
[2023-11-04 15:43] LABS: Vitamin B12 417 pg/mL (239-931)
== END 2023-11-02 23:59 | disposition home or self-care (01) ==
LOC: LAB.DROPOF 11-04 09:10
PROVIDERS: PCP Family Medicine; Visit Provider Family Medicine
DX: E11.9 Type 2 diabetes mellitus without complications; D75.89 Other specified diseases of blood and blood-forming organs; Z68.28 Body mass index [BMI] 28.0-28.9, adult; Z79.4 Long term (current) use of insulin
CPT/HCPCS: 80053; 80061; 82607; 83036; 84443; 85025

== ENCOUNTER 2025-01-20 13:25 | Outpatient (CLI) | payer MEDICARE, MEDICAID, SELFPAY ==
[2025-01-20 18:55] LABS: Hematocrit 44.3 % (42.0-52.0); Hemoglobin 14.4 g/dL (14.1-18.0); Immature Granulocytes % 0.2 %; Mean Corpuscular HGB Conc 32.5 g/dL (31.8-35.4); Mean Corpuscular Hemoglobin 30.3 pg (27.0-31.2); Mean Corpuscular Volume 93.1 fl (80-94); Nucleated Red Blood Cells % 0 %; Platelet Count 188 K/mm3 (142-424); Red Blood Count 4.76 M/mm3 (4.60-6.20); Red Cell Distribution Width-SD 41.2 fL; White Blood Count 5.5 K/mm3 (4.8-10.8)
[2025-01-20 19:48] LABS: Hemoglobin A1C 7.0 % (4.0-6.0)
[2025-01-20 22:02] LABS: Albumin Level 4.3 g/dl (3.5-5.0); Chloride 104 mmol/L (98-107); Potassium 3.9 mmoL/L (3.5-5.1); Sodium 142 mmol/L (136-145)
[2025-01-20 22:05] LABS: Alanine Aminotransferase 17 U/L (12-78); Albumin/Globulin Ratio 1.3 (1.1-1.8); Alkaline Phosphatase 93 U/L (38-126); Anion Gap 11.9 mEq/L (5-15); Aspartate Amino Transferase 25 U/L (17-59); Bilirubin,Total 1.2 mg/dl (0.2-1.3); Blood Urea Nitrogen 27 mg/dl (9-20); Carbon Dioxide 30 mmol/L (22.0-30.0); Cholesterol 216 mg/dl (140-200); Creatinine,Serum 2.90 mg/dl (0.66-1.25); Estimated Glomerular Filt Rate 22 ml/min (>60); GFR (African American) 27 ML/MIN (>60); Globulin 3.3 g/dL (1.3-3.2); Total Protein,Serum 7.6 g/dl (6.3-8.2); Triglycerides 65 mg/dl (30-150)
[2025-01-20 22:06] LABS: Calcium 9.2 mg/dl (8.4-10.2); Glucose 153 mg/dl (74-100); HDL Cholesterol 65 mg/dl (40-60)
[2025-01-20 22:40] LABS: Thyroid Stimulating Hormone 0.98 uIU/mL (0.465-4.68)
--- OUTSIDE RECORDS SUMMARY | 2025-01-23 12:59 | XMS_ITS | Referral Summary ---
Author Organization [facility] ([place], [place], [place], [place]) Address [address] [place] [address] Care Team Providers Care Cook Chili Name Role Phone Ilda Yates PA-C Primary Care Provider Allergies No known active allergies Medications atorvastatin (LIPITOR) 10 MG tablet Take 1 tablet (10 mg total) by mouth nightly. Active pantoprazole (PROTONIX) 40 MG tablet Take 1 tablet (40 mg total) by mouth daily. Active cholecalcifero l (VITAMIN D3) 25 mcg (1,000 unit) tablet Take 1 tablet (1,000 Units total) by mouth daily. Active clopidogreL (PLAVIX) 75 mg tablet Take 1 tablet (75 mg total) by mouth daily. 30 tablet 4 Active acetaminophen (TYLENOL) 325 MG tablet Take 2 tablets (650 mg total) by mouth every 6 (six) hours as needed. 30 tablet 4 Active hydrALAZINE (APRESOLINE) 25 MG tabletIndicati ons:Hypertensi ve emergency Take 3 tablets (75 mg total) by mouth every 8 (eight) hours. 270 tablet 4 Active insulin lispro (HUMALOG, ADMELOG) 100 unit/mL injection Inject 0-6 Units subcutaneously 4 (four) times daily before meals and nightly According to sliding scale: 0 units for BG<140, 1 unit for 140-180, 2 units for 181-220, 3 units for 221-260, 4 units for 261-300, 5 units for 301-350, 6 units for 351-400.. 15 mL 4 Active Active Problems Problem Noted Date Diagnosed Date Hypertensive emergency 09/09/2023 Social History Tobacco Use Types Packs/Day Years Used Date Smoking Tobacco: Never Smokeless Tobacco: Never Alcohol Use Standard Drinks/Week Comments Not Currently 0 (1 standard drink = 0.6 oz pur e alcohol) Utilities Answer Date Recorded In the past 12 months, has t he electric, gas, oil, or water company threatened to shut off services in your home? No 09/10/2023 Food Insecurity Answer Date Recorded Within the past 12 months, y ou worried that your food would run out before you got money to buy more. Never true 09/10/2023 Within the past 12 months, t he food you bought just didn't last and you didn't have money to get more. Never true 09/10/2023 Transportation Needs Answer Date Record ed In the past 12 months, has l ack of reliable transportation kept you from medical appointments, meetings, work or from getting things needed for daily living? No 09/10/2023 Financial Resource Strain Answer Date R ecorded How hard is it for you to pa y for the very basics like food, housing, medical care, and heating? Would you say it is: Not hard at all 09/10/2023 Employment Answer Date Recorded Do you want help finding or keeping work or a job? I do not need or want help 09/10/2023 Family and Community Support Answer Clyde e Recorded If for any reason you need h elp with day-to-day activities such as bathing, preparing meals, shopping, managing finances, etc., do you get the help you need? I don't need any help 09/10/2023 Feeling Lonely or Isolated 0 09/09 Educational Attainment Answer Date Spike rded Do you speak a language other than [place] [employer]? No 09/10/2023 Do you want help with school or training? For example, starting or completing job training or getting a high school diploma, GED or equivalent. No 09/10/2023 Physical Activity Answer Date Recorded Number of minutes of exercise per week 0 09/10/2023 Substance Use Answer Date Recorded How many times in the past y ear have you used prescription drugs for non-medical reasons? Never 09/10/2023 How many times in the past year have you used [place] legal drugs? 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 Gender Identity Not on file Sexual Orientation Not on file Last Filed Vital Signs Vital Sign Reading Time Taken Comments Blood Pressure 150/94 09/14/2023 10:10 AM EDT Pulse 89 09/14/2023 10:10 AM EDT Temperature 36.8 C (98.2 F) 09/14/2023 10:10 AM EDT Respiratory Rate 18 09/14/2023 10:10 AM EDT Oxygen Saturation 98% 09/14/2023 10:10 AM EDT Inhaled Oxygen Concentration - - Weight 86.2 kg (190 lb) 09/09/2023 5:03 PM EDT Height 175.3 cm (5' 9 ) 09/09/2023 5:03 PM EDT Body Mass Index 28.06 09/09/2023 5:03 PM EDT Plan of Treatment Not on file Procedures Procedure Name Priority Date/Time Associated Diagnosis Comments LIPID PANEL STAT 09/11/2023 6:09 AM EDT from Last 3 Months or Most Recently Relevant to Health Maintenance Results * Lipid panel (09/11/2023 6:09 AM EDT) Triglycerides 49 0 - 249 mg/dL 09/11/2023 7:15 AM EDT [facility] Cholesterol 124 0 - 199 mg/dL 09/11/2023 7:15 AM EDT [facility] Comment: 200 to 239 mg/dL = Moderate (borderline) >239 mg/dL = High HDL Cholesterol 51 >=40 mg/dL 7:15 AM EDT [facility] Comment: >=60 mg/dL = Desirable <40 mg/dL = Increased Risk All other components are listed individually or are calculations VLDL Cholesterol 9.8 5 - 40 mg/dL 09/11/2023 7:15 AM EDT [facility] Cholesterol/HDL ratio 2.4 0.0 - 3.2 09/11/2023 7:15 AM EDT [facility] LDl/HDL Ratio 1 0 - 4 09/11/2023 7:15 AM EDT [facility] RISK COMP 2 09/11/2023 7:15 AM EDT [facility] LDL Cholesterol, Calculated 63 0 - 99 mg/dL 09/11/2023 7:15 AM EDT [facility] Blood Venipuncture / Unknown 09/11/2023 6:09 AM EDT 09/11/2023 6:34 AM EDT us Nae Schultz SUPERVISOR SPECIAL EDUCATION LAB BLOOD ORDERABLES Final Result [facility] [address] [place], [place] [address] [phone] from Last 3 Months or Most Recently Relevant to Health Maintenance Insurance MEDICARE PART A B Advance Directives For more information, please contact: [phone] * Full Code (Latest Code Status on File) Date Activated Date Inactivated Comments 09/09/2023 9:55 PM 09/14/2023 3:55 PM -Attempt Res uscitation if person has no pulse and is not breathing. -If no pulse or not breathing attempt CPR/CODE. -Call Rapid Response if patient is in distress. Care Teams Cook Chili Relationship Specialty Start Date End Date Ilda Yates PA-C [address] [place] [address] PCP - General Physician Temper Mill Operator 04/10/22
--- OUTSIDE RECORDS SUMMARY | 2025-01-23 12:59 | XMS_ITS | Clinical Summary ---
Author Organization [employer] ([place], [place], [place], [place]) Address [address] [place] [address] Care Team Providers Care Measurement Coordinator Name Role Phone Ilda Yates PA-C Primary Care Provider [phone] Allergies No known active allergies Medications atorvastatin [...] Do you speak a language other than [place] at [facility]? 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 Gender Identity Not on file Sexual Orientation [...] 09/09/2023 5:03 PM EDT Plan of Treatment Health Maintenance Due Date Last Done Comments CT Colonography 1965 Colonoscopy 1965 Colorectal Cancer Screening 1965 FOBT/FIT 1965 Fit-DNA (Cologuard) 1965 Sigmoidoscopy 1965 Depression Screening (12+) 1977 HIV Screening 1980 Hepatitis C Screening 1983 DTAP/TDAP/TD VACCINES (1 - Tdap) 1984 Medicare Initial AWV [id number] 08/31/2010 Pneumococcal 50+ years (1 of 1 - PCV) 2015 Shingles Vaccine (Zoster) (1 of 2) 2015 COVID-19 VACCINE (1 - season) 2024 Tobacco Cessation Counseling and Screening (12+) 09/0809/09/2023 Influenza Vaccine (#1) 2025 Lipid Panel 09/10/2026 09/11/2023 Procedures Procedure Name Priority Date/Time Associated Diagnosis Comments LIPID PANEL STAT 09/11/2023 6:09 AM EDT from Last 3 Months or Most Recently Relevant to Health Maintenance Results * Lipid panel (09/11/2023 6:09 AM EDT) Triglycerides 49 0 - 249 mg/dL 09/11/2023 7:15 AM EDT [facility] Cholesterol 124 0 - 199 mg/dL 09/11/2023 7:15 AM EDT [facility] Comment: 200 to 239 mg/dL = Moderate (borderline) >239 mg/dL = High HDL Cholesterol 51 >=40 mg/dL 7:15 AM EDT [facility] Comment: >=60 mg/dL = Desirable <40 mg/dL = Increased Risk All other components are listed individually or are calculations VLDL Cholesterol 9.8 5 - 40 mg/dL 09/11/2023 7:15 AM EDT [facility] Cholesterol/HDL ratio 2.4 0.0 - 3.2 09/11/2023 7:15 AM EDT [facility] LDl/HDL Ratio 1 0 - 4 09/11/2023 7:15 AM EDT [facility] RISK COMP 2 09/11/2023 7:15 AM EDT [facility] LDL Cholesterol, Calculated 63 0 - 99 mg/dL 09/11/2023 7:15 AM EDT [facility] Blood Venipuncture / Unknown 09/11/2023 6:09 AM EDT 09/11/2023 6:34 AM EDT [facility] BLOOD ORDERAB[facility] Final Result Performing Organization Address City/State/[facility] Co de Phone Number [facility] [address] [phone] from Last 3 Months or Most Recently Relevant to Health Maintenance Insurance MEDICARE PART A B Advance Directives For more information, please contact: [phone] * Full Code (Latest Code Status on File) Date Activated Date Inactivated Comments 09/09/2023 9:55 PM 09/14/2023 3:55 PM -Attempt Res uscitation if person has no pulse and is not breathing. -If no pulse or not breathing attempt CPR/CODE. -Call Rapid Response if patient is in distress. Care Teams Measurement Coordinator Relationship Specialty Start Date End Date Ilda Yates, JOC [address] [place] [address] PCP - General Physician Laser Specialist 04/10/22
--- OUTSIDE RECORDS SUMMARY | 2025-01-23 12:59 | XMS_ITS | Clinical Summary ---
Author Organization [facility] Address [address] [place] [address] Phone Care Team Providers Care Offset Pressman Name Role Phone Unavailable Unavailable Conditions or Problems No information available. Medications No information available. Medications Administered No information available. Allergies, Adverse Reactions, Alerts No information available. Results No information available. Plan of Care No information available. Procedures No information available. Vital Signs No information available. Immunizations No information available. Advance Directives No information available.
--- OUTSIDE RECORDS SUMMARY | 2025-01-23 12:59 | XMS_ITS | Clinical Summary ---
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 09/04/2016 Active clopidogrel (Plavix) 75 MG tablet TAKE 1 TABLET DAILY. 11/16/2015 Active insulin glargine (Lantus) 100 UNIT/ML injection 09/04/2016 A ctive isosorbide mononitrate ER (Imdur) 30 MG 24 hr tablet 1 (one) time each day. 11/16/2015 Active lisinopril 10 MG tablet 1 (one) time each day. 09/04/2016 Active pantoprazole (ProtoNix) 40 MG EC tablet 1 (one) time each day. 11/16/2015 Active lamoTRIgine (LaMICtal) 25 MG tablet 2 (two) times a day. 11/16/2015 Active cholecalciferol (Vitamin D-3) 25 MCG (1000 UT) capsule Take 1,000 Units by mouth 1 (one) time each day. Active carvedilol (Coreg) 6.25 MG tablet Take by mouth 2 (two) times a day with meals. Active pioglitazone (Actos) 30 MG tablet Take 30 mg by mouth 1 (one) time each day. Active chlorthalidone (Hygroton) 25 MG tabletIndications :Essential hypertension Take 1 tablet (25 mg total) by mouth 1 (one) time each day. 30 tablet 5 01/03/2021 Active Active Problems Problem Noted Date Diagnosed Date Anemia due to chronic illness 09/26/2016 Proteinuria 09/26/2016 Vitamin D deficiency 09/26/2016 CKD (chronic kidney disease) stage 3, GFR 30-59 ml/min 09/04/2016 Diabetes mellitus, type 2 11/16/2015 High cholesterol 11/16/2015 Hypertension 11/16/2015 Family History Medical History Relation Name Comments Hypertension Father Conversions - Other Mother Smoker Relation Name Status Comments Father Mother Social History Tobacco Use Types Packs/Day Years Used Date Smoking Tobacco: Never Smokeless Tobacco: Never Alcohol Use Standard Drinks/Week Comments No 0 (1 standard drink = 0.6 oz pur e alcohol) Sex and Gender Information Value Date Recorded Sex Assigned at Not on file Legal Sex Male 5:56 PM EDT Gender Identity Not on file Sexual Orientation Not on file Last Filed Vital Signs Vital Sign Reading Time Taken Comments Blood Pressure 178/100 01/03/2021 1:42 PM EDT Pulse 67 01/03/2021 1:42 PM EDT Temperature - - Respiratory Rate - - Oxygen Saturation - - Inhaled Oxygen Concentration - - Weight 97 kg (213 lb 12.8 oz) 01/03/2021 1:42 P M EDT Height 172.7 cm (5' 8 ) 09/04/2016 1:05 PM EDT Body Mass Index 32.51 09/04/2016 1:05 PM EDT Plan of Treatment Health Maintenance Due Date Last Done Comments [facility]-Depression Screening 1965 [facility]-/Child/Adol SDOH Screenings 1965 [facility]- SDOH Screenings 1983 [facility]-Adult SDOH Screenings 1983 [facility]-DTaP,Tdap,and Td Vaccine s (1 - Tdap) 1984 [facility]-Hepatitis B Vaccines (1 of 3 - 19+ 3-dose series) 1984 CT Colonography 2010 Colonoscopy 2010 FIT-DNA 2010 FIT 2010 FOBT 2010 Sigmoidoscopy 2010 [facility]-Colorectal Cancer Screening 2010 [facility]-Pneumococcal Vaccine: 50 + Years (1 of 1 - PCV) 2015 [facility]-Zoster Vaccines (1 of 2) 2015 [id number] Vaccine (1 - 20 24-25 season) 2024 [facility]-Influenza Vaccine (#1) 2025 HPV Vaccines Aged Out No longer eligi ble based on patient's age to complete this topic [facility]-HIB Vaccines Aged Out No longer e ligible based on patient's age to complete this topic [facility]-Hepatitis A Vaccines Aged Out No longer eligible based on patient's age to complete this topic [facility]-IPV Vaccines Aged Out No longer e ligible based on patient's age to complete this topic [facility]-Rotavirus Vaccines Aged Out No lo nger eligible based on patient's age to complete this topic Insurance MEDICARE Care Teams Transfer Iron Operator Relationship Specialty Start Date End Date Ilda Yates PA [address] [place] [address] PCP - General 10/12/20
--- OUTSIDE RECORDS SUMMARY | 2025-01-23 12:59 | XMS_ITS | Encounter Summary ---
Author Organization Healthcare Address [address] [place] [address] Care Team Providers Care Rn Advice Name Role Phone Ilda Yates Primary Care Provider [phone] Reason for Visit * Reason Comments Med Refill Encounter Details Date Type Department Care Team (Late st Contact Info) Description 09/27/2021 Refill [facility] [address] [place] [address] Poppy Cárdenas MD [address] [address] Essential hypertension Social History Tobacco Use Types Packs/Day Years Used Date Smoking Tobacco: Never Smokeless Tobacco: Never Alcohol Use Standard Drinks/Week Comments No 0 (1 standard drink = 0.6 oz pur e alcohol) Sex and Gender Information Value Date Recorded Sex Assigned at Not on file Legal Sex Male 5:56 PM EDT Gender Identity Not on file Sexual Orientation Not on file documented as of this encounter Plan of Treatment Not on file documented as of this encounter Visit Diagnoses Diagnosis Essential hypertension Unspecified essential hypertension documented in this encounter Care Teams Rn Advice Relationship Specialty Start Date End Date Ilda Yates PA [address] [place] [address] PCP - General 10/12/20 documented as of this encounter
== END 2025-01-20 23:59 | disposition home or self-care (01) ==
LOC: LAB.DROPOF 01-23 12:54
PROVIDERS: PCP Family Medicine; Visit Provider Family Medicine
DX: E11.21 Type 2 diabetes mellitus with diabetic nephropathy (principal); I10 Essential (primary) hypertension
CPT/HCPCS: 80053; 80061; 82043; 82570; 83036; 84443; 85025